=== PATIENT | female | born 1985 | race Caucasian/White ===

== ENCOUNTER 2020-06-27 12:29 | Inpatient (IN) | payer OTHER, SELFPAY ==
[2020-06-27] VITALS (25 sets, daily range): BP systolic 121–259; BP diastolic 41–160; PULSE 67–105; RESP 14–23; TEMP 36.2–37.3; O2SAT 93–100
--- NOTE | ~2020-06-27 | MR_ITS ---
EXAMINATION: MRA brain wo con EXAM DATE: 06/29/2020 11:43 INDICATION: Aneurysm. TECHNIQUE: 3-D lvqz-tj-pcpctq MRA of the intracranial arteries was performed without contrast. There is no prior study for comparison. FINDINGS: There is normal flow related signal seen within the vertebral, basilar and internal carotid arteries. There is no proximal stenosis. There are no aneurysms identified. Both A1 and P1 segments are pat ent. Flow in the cerebral arteries is symmetric. There is right-sided posterior communicating arter y dominant posterior cerebral artery. The vertebral arteries are codominant. IMPRESSION: Normal MRA brain exam. Reviewed, dictated and finalized at location A. UCTION COOK IMPRESSION: Normal MRA brain exam.
--- NOTE | ~2020-06-27 | US_ITS ---
EXAMINATION: US renal BI DATE: 06/29/2020 14:58 INDICATION: Polycystic kidney disease. Hypertension. TECHNIQUE: Multiple ultrasound grayscale images of the kidneys were obtained. COMPARISON: CT dated 05/26/2012 FINDINGS: The right kidney measures 21.6 x 11.7 x 9.9 cm. The left kidney measures 18.7 x 8.8 x 12.0 cm. There are numerous anechoic simple appearing renal cysts occupying the majority of the space throughout bot h kidneys consistent with polycystic kidney disease. There is no hydronephrosis in either kidney. No shadowing stones identified. The bladder is nonvisualized. IMPRESSION: 1. Both kidneys are enlarged and filled with numerous anechoic cysts consistent with polycystic kidn ey disease. 2. No hydronephrosis. Reviewed, dictated and finalized at location A. RONMENTAL SERVICES SPECIALIST IMPRESSION: 1. Both kidneys are enlarged and filled with numerous anechoic cysts consisten t with polycystic kidney disease. 2. No hydronephrosis.
--- NOTE | 2020-06-27 12:31 | ECG_ITS ---
Measurements Intervals [place] Rate: 85 P: 9 [place]: 144 QRS: 32 QRSD: 94 T: -11 QT: 388 QTc: 463 Interpretive Statements SINUS RHYTHM DELAYED PRECORDIAL R/S TRANSITION VOLTAGE CRITERIA FOR LVH NONSPECIFIC ST & T-WAVE ABNORMALITY- INF/LAT LEADS BASELINE ARTIFACT- I, II, III, AVL BORDERLINE ECG Electronically Signed On 06-27-2020 13:29:04 [employer] by Nagi Ruiz D.O.
--- NOTE | 2020-06-27 12:47 | ED.GENADULT ---
HPI - General Adult General Chief complaint: Recheck/Abnormal Lab/Rx Stated complaint: HTN Time Seen by Provider: 06/27/20 12:31 Source: patient History of Present Illness HPI narrative: Patient is a 35 y/o female complaining of severe hypertension. She was seen at Dr. Ocampo's office earlier today. Her BP was reportedly 270s/150s. Running out of medication may have aggravated her HTN. She states that her BP has been high for at least a months. She states that she was seen at [facility] 1 months ago and her BP was 230s/130. She was put on Atenolol, but she ran out 4 days ago. She states that she has history polycystic kidney disease. Related Data Home Medications Medication Instructions Recorded Confirmed atenolol 50 mg PO 06/27/20 Allergies Allergy/AdvReac Type Severity Reaction Status Date / Time No Known Drug Allergies Allergy Unknown Verified 06/27/20 16:06 Review of Systems Constitutional: Constitutional: Denies chills, Denies fever(s), Denies headache(s) and Denies weakness Eyes: Eyes: Denies blurry vision ENT: Denies headache(s) and Denies neck pain Cardiovascular: Cardiovascular: Denies chest pain and Denies dyspnea Respiratory: Respiratory: Denies cough and Denies dyspnea Gastrointestinal: Gastrointestinal: Denies abdominal pain, Denies diarrhea, Denies nausea and Denies vomiting Genitourinary: Genitourinary: Denies hematuria and Denies dysuria Musculoskeletal: Musculoskeletal: Denies back pain and Denies neck pain Neurologic: Denies headache(s) and Denies weakness [facility] Social History Social History Gender identity (if verbalized by the patient): Female Exam Const: General: no acute distress and well developed Orientation/consciousness: oriented to person, oriented to place, oriented to time and patient oriented x3 HENMT: Head: normocephalic Ears: external ears normal General nose exam: Normal external nose present Eyes: General: appearance normal, both eyes and all related structures Conjunctivae: conjunctivae normal Neck: Neck: normal visual inspection and full ROM Chest: Chest palpation & inspection: normal inspection of the chest and no tenderness Resp: Effort & Inspection: normal respiratory effort Auscultation: clear to auscultation bilaterally Cardio: Rate: regular rate Rhythm: regular rhythm GI: GI Palp: No abdominal tenderness and Yes Soft to palpation Skin: General skin exam: normal color and turgor normal Neuro: General: oriented to person, oriented to place, oriented to time and patient oriented x3 Cranial nerves: Yes CN's II-XII intact bilaterally Cognition (Neuro): normal cognition Speech: normal speech Motor exam (neuro): 5/5 motor strength present throughout Sensory Exam: normal sensation Coordination: cwntkl-[id number]-gygq test normal and xzsl-zp-pldo test normal Extrem: General: normal to inspection, full ROM and no pedal edema Psych: Appearance: grossly normal Mental Status: mental status grossly normal Affect: normal affect Course Consultations Consultation #1: Discussed with SIOMARA Louise, who agrees to admit. Date: 06/27/20 Time: 15:50 Vital Signs Vital signs: Vital Signs Temperature 36.2 C L 06/27/20 12:30 Pulse Rate 90 06/27/20 12:30 Respiratory Rate 17 06/27/20 12:30 Blood Pressure 248/154 H 06/27/20 12:30 Pulse Oximetry 99 06/27/20 12:30 Temperature 36.2 C L 06/27/20 12:30 Pulse Rate 71 06/27/20 17:46 Respiratory Rate 19 06/27/20 17:46 Blood Pressure 135/80 06/27/20 17:46 Pulse Oximetry 100 06/27/20 17:46 Medical Decision Making Vital Signs Vital Signs: Vital Signs Temperature 36.2 C L 06/27/20 12:30 Pulse Rate 90 06/27/20 12:30 Respiratory Rate 17 06/27/20 12:30 Blood Pressure 248/154 H 06/27/20 12:30 Pulse Oximetry 99 06/27/20 12:30 Temperature 36.2 C L 06/27/20 12:30 Pulse Rate 71 06/27/20 17:46 Respiratory Rate 19
[2020-06-27 12:54] LABS: Basophils Absolute Auto 0.1 K/mm3 (0.0-0.1); Basophils Percent Auto 0.5 % (0.2-1.2); Eosinophils Absolute Auto 0.2 K/mm3 (0-0.3); Eosinophils Percent Auto 1.5 % (0-4.4); Hematocrit 37.8 % (37.0-47.0); Hemoglobin 12.4 g/dL (12.0-15.0); Immature Granulocyte Absolute 0.06 K/mm3 (0.00-0.031); Immature Granulocyte Percent A 0.4 % (0-0.5); Lymphocytes Percent Auto 20.2 % (18.3-44.2); Mean Corpuscular HGB Conc 32.8 g/dl (32-36); Mean Corpuscular Hemoglobin 29.2 pg (26-34); Mean Corpuscular Volume 88.9 fl (80-100); Mean Platelet Volume 10.6 fl (7.4-10.4); Monocytes Absolute Auto 0.9 K/mm3 (0.1-0.6); Monocytes Percent Auto 5.7 % (2.6-8.5); Neutrophils Absolute Auto 11.4 K/mm3 (1.3-6.7); Neutrophils Percent Auto 71.7 % (45.5-73.1); Platelet Count Result 332 k/mm3 (150-375); Red Blood Count 4.25 M/mm3 (4.2-5.4); Red Cell Distribution Width 13.9 % (11.5-14.5); White Blood Count 15.8 K/mm3 (4.5-10.0)
[2020-06-27] MEDS: amLODIPine BESYLATE 5 MG TABLET 10 MG PO (12:59)
[2020-06-27] MEDS: atenoloL 50 MG TABLET 100 MG PO (13:02)
[2020-06-27 13:06] LABS: Anion Gap 11 mmol/L (8-16); Blood Urea Nitrogen 19 mg/dL (7-17); Carbon Dioxide 21 mmol/L (22-30); Chloride 109 mmol/L (98-107); Estimated CRCL calculation 33 ml/min; Estimated Glomerular Filt Rate 27; Glucose 95 mg/dL (65-105); Potassium 4.4 mmol/L (3.4-5.0); Sodium 141 mmol/L (137-145)
[2020-06-27 13:16] LABS: Troponin I < 0.012 ng/mL (0.000-0.034)
[2020-06-27 13:16] LABS: Add Urine Microscopic? YES; Appearance Urine Clear (Clear); Bacteria Urine 1+ /hpf; Bilirubin Urine Negative (Negative); Blood Urine 1+ (Negative); Color Urine Colorless (Yellow); Glucose Urine UA Negative (Negative); Ketones Urine Negative (Negative); Leukocyte Esterase Ur Negative LEU/UL (Negative); Nitrate Urine Negative (Negative); Protein Urine 2+ mg/dL (Negative); Specific Grav Ur 1.009 (1.001-1.035); Squamous Epithelial Cell Urine Occasional /hpf (Few); Urobilinogen Urine Negative mg/dL (<2.0); WBC Urine 0-3 /hpf
[2020-06-27] MEDS: LABETALOL HCL INJ 100 MG/20 ML VIAL 20 MG IV PUSH ×2 (14:06→19:11)
[2020-06-27] MEDS: hydrALAZINE HCL 50 MG TABLET PO (14:06)
[2020-06-27] MEDS: niCARdipine 20 MG/200 ML 20 MG/200 ML BAG 50 MG IV CONT (16:50)
--- NOTE | 2020-06-27 17:07 | PC.NURSE ---
Per Dr. Landeros, Cardene drip stopped. Pt blood pressure at this time is 138/83
--- NOTE | 2020-06-27 20:30 | ADMGEN ---
This patient, Lyric Law, was admitted to [facility]. Patient/family oriented to hospital policies and general routines including ID bracelet, bed and alarms, visiting hours, pain management, procedures, bathroom and other care routines, personal items, smoking policy, room service/diet, and visiting hours. Information on how to activate the Rapid Response Team has been discussed. Patient/Family are encouraged to report perceived risks to care and to ask questions if they do not understand what they are told or what they should do.
--- NOTE | 2020-06-27 23:00 | PM.IMHP ---
H&P: HPI History of Present Illness Date/Time: 06/27/20 23:00 Chief complaint: Elevated blood pressure. Narrative: Lyric Law is a pleasant 35-year-old female with hypertension and polycystic kidney disease who presented to the emergency department earlier today from her primary care provider's office for elevated blood pressure. She has had high blood pressure for quite some time but has only been on antihypertensives intermittently since that time. She was establishing care with Dr. Ocampo today and her blood pressure was reportedly in the 270s over 150s and she was directed to the emergency department. With further questioning she was seen at [facility] about a month ago after being referred there from a local urgent care, again due to extremely high blood pressure. She was given a prescription for atenolol 50 mg daily which she did take however ran out of that 4 days ago. She does not monitor her blood pressures at home and really has no symptoms of high blood pressure. She specifically denies headache, vertigo, visual changes, chest pain, and shortness of breath. Of note she was recently referred to and child care education coordinator as she was told that she has evidence of chronic renal failure on her labs. Review of Systems Review of Systems: Narrative: Twelve systems were reviewed with pertinent positives and negatives as per HPI. No fever, chills, or sweats. No recent cold or flu symptoms. She is complaining of a mild headache at this time but nothing significant. No auditory visual changes. She denies focal weakness and paresthesias. No change in urine output. She denies hematuria. Except as documented, all other systems were reviewed and are negative. [facility] Past Medical History Medical History (Updated 06/27/20 @ 23:41 by Aspen Cason PA-C) Anemia Chronic kidney disease Depression Hypertension Polycystic kidney disease Tobacco abuse Rntzr-Ctyjtbczr-Fmupv syndrome Status post ablation. Surgical History Surgical History (Updated 06/27/20 @ 23:35 by Aspen Cason PA-C) History of 2 sections History of cardiac radiofrequency ablation (~1998) For Etfjd-Ytqzmaakz-Tfgjr syndrome. History of D&C History of tubal ligation Family History Family History Mother A-fib Colitis Mitral valve prolapse Father Polycystic kidney disease Sibling Right bundle branch block Social History Social History (Updated 06/28/20 @ 00:47 by Aspen Cason PA-C) Social History: Surrogate decision maker: Ita Cummings, mother. Code status: Full code. Smoking packs per day: 1 Smoking cigarettes per day: 20.0 Smoking status: Current every day smoker Tobacco type: cigarettes Alcohol intake: never Substance use: never Substance use type: does not use Additional living arrangements comments: Lives in [place] with her fiance and 2 sons. Additional occupation/education comments: Employed at [employer]. Gender identity (if verbalized by the patient): Female Spiritual care concerns: No Meds Home Medications and Allergies Home Medications Medication Instructions Recorded Confirmed Type atenolol 50 mg PO DAILY 06/27/20 06/27/20 History citalopram [Celexa] 40 mg PO DAILY 06/27/20 06/27/20 History Allergies Allergy/AdvReac Type Severity Reaction Status Date / Time No Known Drug Allergies Allergy Unknown Verified 06/27/20 16:06 Vital Signs Vital Signs - 24 hr 06/27/20 12:30 06/27/20 12:46 06/27/20 13:00 Temperature 97.1 F L Pulse Rate 90 105 H 88 Respiratory Rate 17 15 23 H Blood Pressure 248/154 H 236/160 H 259/145 H Pulse Oximetry 99 99 100 06/27/20 13:02 06/27/20 13:16 06/27/20 13:31 Temperature Pulse Rate 91 86 81 Respiratory Rate 14 23 H Blood Pressure 239/141 H 244/155 H Pulse Oximetry 99 99 06/27/20 14:01 06/27/20 14:16 06/27/20 14:31 Te
[2020-06-28] VITALS (15 sets, daily range): BP systolic 163–200; BP diastolic 115–125; PULSE 63–80; RESP 14–20; TEMP 36.8–37.1; O2SAT 98–100; BMI 20.1
[2020-06-28] MEDS: hydrALAZINE HCL 20 MG/ML VIAL 10 MG IV PUSH ×2 (00:48→08:46)
[2020-06-28] MEDS: ACETAMINOPHEN 500 MG TABLET 1000 MG PO (02:14)
[2020-06-28] MEDS: TRIMETHOBENZAMIDE HCL 200 MG/2 ML VIAL IM (03:58)
[2020-06-28 05:16] LABS: Hemoglobin 11.7 g/dL (12.0-15.0); Mean Corpuscular HGB Conc 32.5 g/dl (32-36); Mean Corpuscular Hemoglobin 28.7 pg (26-34); Mean Corpuscular Volume 88.2 fl (80-100); Mean Platelet Volume 10.4 fl (7.4-10.4); Platelet Count Result 325 k/mm3 (150-375); Red Blood Count 4.08 M/mm3 (4.2-5.4); Red Cell Distribution Width 13.8 % (11.5-14.5); White Blood Count 16.6 K/mm3 (4.5-10.0)
[2020-06-28 05:27] LABS: Anion Gap 8 mmol/L (8-16); Blood Urea Nitrogen 20 mg/dL (7-17); Calcium 9.6 mg/dL (8.4-10.2); Carbon Dioxide 23 mmol/L (22-30); Chloride 107 mmol/L (98-107); Estimated CRCL calculation 29 ml/min; Estimated Glomerular Filt Rate 25; Glucose 121 mg/dL (65-105); Sodium 138 mmol/L (137-145)
[2020-06-28] MEDS: amLODIPine BESYLATE 5 MG TABLET 10 MG PO (08:39)
[2020-06-28] MEDS: atenoloL 50 MG TABLET 100 MG PO (08:39)
[2020-06-28] MEDS: CITALOPRAM HYDROBROMIDE 20 MG TABLET 40 MG PO (08:39)
--- NOTE | 2020-06-28 12:58 | PM.IMPN ---
Progress Note: A&P Assessment and Plan (1) Hypertensive urgency: Code(s): I16.0 - Hypertensive urgency Status: Acute Assessment and Plan: Patient was at new patient appointment with Dr Ocampo, sent here for elevated BPs. Blood pressures as high as 219/140, now at 183/119 last this afternoon. In the ED she was treated with IV labetalol, oral amlodipine and oral hydralazine. She was on a nicardipine drip overnight which was stopped this morning. Received this AM: 100mg atenolol, 10mg amlodipine, IV hydralazine. Add low-dose ALLY inhibitor this afternoon. Pressures improved but not ideal. Appreciate Dr Eddy's input in this setting, as she will greatly benefit from establishing care with a divider operator. (2) Chronic kidney disease: Code(s): N18.9 - Chronic kidney disease, unspecified Status: Chronic Assessment and Plan: Cr up to 2.2. Attempt to get records from Dr Harley's office (her last PCP) for any recent labs that my help establish her more recent kidney function. Difficult to say if this is acute on chronic renal failure or if this is her new baseline function until we get more labs. Cr as high as 1.2 noted on our records from 2011. 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 She notes she was to be referred to a divider operator soon by Dr Ocampo's office but is not yet established with a divider operator. Appreciate Dr Eddy's input. (4) Anemia: Code(s): D64.9 - Anemia, unspecified Status: Chronic Assessment and Plan: H&H is low but stable. I suspect a component of anemia of chronic kidney disease. No evidence of acute bleeding. Monitor CBC. (5) Tobacco abuse: Code(s): Z72.0 - Tobacco use Status: Chronic Assessment and Plan: Smoking cessation advised. Nicotine patch offered. (6) Anxiety: Code(s): F41.9 - Anxiety disorder, unspecified Status: Chronic Assessment and Plan: She describes up to 3 panic attacks per week. Continue her celexa. I recommended she establish with a psychologist or talk therapist as she may benefit from cognitive behavioral therapy. She is anxious today. Try low dose xanax PRN for now and adjust as needed. (7) Leukocytosis: Code(s): D72.829 - Elevated white blood cell count, unspecified Status: Acute Assessment and Plan: No signs or symptoms of acute infection. Afebrile. UA with proteinuria but not suggesting infection. No respiratory symptoms. Could be secondary to stress reaction, also she is a smoker. Monitor CBC. Subjective Date/time seen: 06/28/20 12:45 Interval history: Ms. Law is a pleasant 35yo F with history of polycystic kidney disease admitted for hypertensive urgency. She describes nausea and vomiting earlier this morning, still nauseous now. She notes a headache over bilateral temples and eyes. She reports she sometimes gets leg swelling if she is up and on her feet for awhile, no swelling today. Denies dizziness, chest pain, or shortness of breath. No cough or recent sick contacts. Last BM this morning and looked normal for her. She describes having panic attacks around 2 to 3 times per week and admits she feels nervous and anxious today. Review of Systems Review of Systems: All systems reviewed & are unremarkable except as noted in HPI and below Exam Narrative: Exam Narrative: General: Well-developed female sitting up in bed in no distress. HEENT: Normocephal
[2020-06-28] MEDS: NICOTINE (*PBKC) 7 MG PATCH 1 PATCH TRANSDERM (13:36)
[2020-06-28] MEDS: ONDANSETRON INJ 4 MG/2 ML VIAL IV PUSH (13:40)
[2020-06-28] MEDS: ONDANSETRON INJ 4 MG/2 ML VIAL (13:43)
[2020-06-28] MEDS: ALPRAZolam (*CRX) 0.25 MG TABLET PO (13:45)
[2020-06-28] MEDS: lisinopriL 5 MG TABLET PO (13:46)
[2020-06-28] MEDS: HYDROcodone/acetaminophen (*CRX) 5-325 MG TABLET 1 TAB PO (18:26)
[2020-06-29] VITALS (15 sets, daily range): BP systolic 136–196; BP diastolic 86–123; PULSE 54–68; RESP 14–16; TEMP 36.8; O2SAT 97–98
[2020-06-29] MEDS: HYDROcodone/acetaminophen (*CRX) 5-325 MG TABLET 1 TAB PO ×2 (00:03→06:17)
[2020-06-29 05:34] LABS: Basophils Absolute Auto 0.1 K/mm3 (0.0-0.1); Basophils Percent Auto 0.3 % (0.2-1.2); Eosinophils Absolute Auto 0.1 K/mm3 (0-0.3); Eosinophils Percent Auto 0.4 % (0-4.4); Hematocrit 36.8 % (37.0-47.0); Immature Granulocyte Absolute 0.08 K/mm3 (0.00-0.031); Immature Granulocyte Percent A 0.5 % (0-0.5); Lymphocytes Absolute Auto 2.73 K/mm3 (0.9-3.2); Lymphocytes Percent Auto 17.9 % (18.3-44.2); Mean Corpuscular HGB Conc 32.6 g/dl (32-36); Mean Corpuscular Hemoglobin 29.1 pg (26-34); Mean Corpuscular Volume 89.3 fl (80-100); Mean Platelet Volume 10.7 fl (7.4-10.4); Monocytes Absolute Auto 1.4 K/mm3 (0.1-0.6); Monocytes Percent Auto 8.8 % (2.6-8.5); Neutrophils Percent Auto 72.1 % (45.5-73.1); Platelet Count Result 317 k/mm3 (150-375); Red Blood Count 4.12 M/mm3 (4.2-5.4); Red Cell Distribution Width 13.9 % (11.5-14.5); White Blood Count 15.3 K/mm3 (4.5-10.0)
[2020-06-29 05:52] LABS: Alanine Aminotransferase 11 U/L (4-35); Albumin Level 4.1 g/dL (3.5-5.1); Alkaline Phosphatase 61 U/L (38-126); Anion Gap 8 mmol/L (8-16); Aspartate Amino Transferase 20 U/L (14-36); Bilirubin,Total 0.3 mg/dL (0.2-1.3); Blood Urea Nitrogen 26 mg/dL (7-17); Calcium 9.6 mg/dL (8.4-10.2); Carbon Dioxide 24 mmol/L (22-30); Chloride 103 mmol/L (98-107); Estimated CRCL calculation 27 ml/min; Estimated Glomerular Filt Rate 23; Glucose 103 mg/dL (65-105); Magnesium 1.9 mg/dL (1.6-2.3); Sodium 135 mmol/L (137-145)
--- NOTE | 2020-06-29 08:27 | PM.CNNEP ---
Assessment and Plan Assessment and plan (1) Polycystic kidney disease: Code(s): Q61.3 - Polycystic kidney, unspecified Status: Chronic Assessment and Plan: the patient has polycystic kidneys. She has a positive family history. Will check a Renal ultrasound. She has headaches. See below. She has some flank pain which may or may not be from the kidneys. She seems to have this in the morning when she lies on her left side. (2) Hypertensive urgency: Code(s): I16.0 - Hypertensive urgency Status: Acute Assessment and Plan: Blood pressure was very high on admission. This is still high. Her potassium is borderline high. She is currently getting atenolol and amlodipine as well as lisinopril. Will start hydrochlorothiazide as well. This will help bring her potassium down to protect from hyperkalemia. She is also getting p.r.n. hydralazine. Her blood pressure is still fairly high right now. (3) Tobacco abuse: Code(s): Z72.0 - Tobacco use Status: Chronic Assessment and Plan: She was encouraged to stop smoking. This is accelerating the demise of her kidneys. We discussed that the kidney function is only 23 and dialysis is 10. (4) Chronic headaches: Code(s): R51.9 - Headache, unspecified; G89.29 - Other chronic pain Status: Acute Assessment and Plan: The patient has headaches. Her aunt had cerebral aneurysms. Because of this, her polycystic kidneys, and her headaches, we need to get an MR angio to be sure she does not have aneurysms as well. Long discussion with the patient. History of Present Illness Reason for Consult Consult date: 06/29/20 Chief Complaint Chief complaint: Elevated blood pressure. History of Present Illness Narrative: Lyric is a very pleasant 35-year-old lady who has polycystic kidney disease. She found out a few years ago. Her aunt has a transplant and her grandmother had it as well. the patient has had headaches since she was 11 years old. They come when her blood pressure is high but also on their own. The patient has flank pain on the left ever once in a while usually in the morning if she had laid on that side. The patient denies kidney stones bloody urine or infections. She does have hypertension. She has had trouble taking her medications. She is to be on lisinopril and then she stopped taking this on her own. A month ago she went to urgent care and they transferred her to [place] where they gave her atenolol. She does not take her blood pressure at home so she does not know how well this works but 4 days ago she ran out and went to see Dr. Ocampo and her blood pressure was 270/140 she says. They sent her to [place] emergency room and she was admitted. She did not have a headache yesterday in his office but she does have a headache now. She smokes a pack a day. She drinks alcohol. Review of Systems Constitutional: Constitutional: Reports no additional constitutional complaints Eyes: Eyes: Reports no additional eye complaints ENT: Reports system reviewed and no additional complaints, except as documented Cardiovascular: Cardiovascular: Reports no additional cardiovascular complaints Respiratory: Respiratory: Reports no additional respiratory complaints Gastrointestinal: Gastrointestinal: Reports no additional gastrointestinal complaints Genitourinary: Genitourinary: Reports no additional female genitourinary complaints Musculoskeletal: Musculoskeletal: Reports no additional musculoskeletal complaints Integumentary/Breasts: Skin/Breast: Reports system reviewed and no additional complaints, except as docu Neurologic: Reports system reviewed and no additional complaints, except as documented Psychiatric: Psychiatric: Reports no additional psychiatric complaints Endocrine: Endocrine: Reports no additional endocrine complaints PMFSH Past Medical History Medical His
[2020-06-29] MEDS: CITALOPRAM HYDROBROMIDE 20 MG TABLET 40 MG PO (08:31)
[2020-06-29] MEDS: atenoloL 50 MG TABLET 100 MG PO (08:31)
[2020-06-29] MEDS: NICOTINE (*PBKC) 7 MG PATCH 1 PATCH TRANSDERM (08:31)
[2020-06-29] MEDS: amLODIPine BESYLATE 5 MG TABLET 10 MG PO (08:57)
[2020-06-29] MEDS: lisinopriL 2.5 MG TABLET PO (08:57)
[2020-06-29] MEDS: hydrALAZINE HCL 20 MG/ML VIAL 10 MG IV PUSH ×2 (08:59→20:22)
[2020-06-29] MEDS: hydroCHLOROthiazide 25 MG TABLET PO (09:53)
--- NOTE | 2020-06-29 16:17 | PM.IMPN ---
Progress Note: A&P Assessment and Plan (1) Hypertensive urgency: Code(s): I16.0 - Hypertensive urgency Status: Acute Assessment and Plan: Sent here from PCPs office for markedly elevated BPs. Blood pressures as high as 219/140, now at 174/119 last this afternoon. Now on atenolol, amlodipine, low-dose lisinopril. Dr Eddy added HCTZ. I decreased the lisinopril dose due to rising Cr. Pressures are improved but still not at goal. Appreciate Dr Eddy's input. (2) Chronic kidney disease: Code(s): N18.9 - Chronic kidney disease, unspecified Status: Chronic Assessment and Plan: Cr up to 2.4. Attempt to get records from Dr Harley's office (her last PCP) for any recent labs that my help establish her more recent kidney function. Cr as high as 1.2 noted on our records from 2011. 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 She notes she was to be referred to a urban forester soon by Dr Ocampo's office but is not yet established with a urban forester. Appreciate Dr Eddy's input. Renal sonogram shows both kidneys enlarged and filled with numerous anechoic cysts consistent with PKD, no hydronephrosis. (4) Anemia: Code(s): D64.9 - Anemia, unspecified Status: Chronic Assessment and Plan: H&H is low but stable. I suspect a component of anemia of chronic kidney disease. No evidence of acute bleeding. Monitor CBC. (5) Tobacco abuse: Code(s): Z72.0 - Tobacco use Status: Chronic Assessment and Plan: Smoking cessation advised. Nicotine patch offered. (6) Anxiety: Code(s): F41.9 - Anxiety disorder, unspecified Status: Chronic Assessment and Plan: She describes up to 3 panic attacks per week. Continue her celexa. I recommended she establish with a psychologist or talk therapist as she may benefit from cognitive behavioral therapy. She is anxious today. Try low dose xanax PRN for now and adjust as needed. (7) Leukocytosis: Code(s): D72.829 - Elevated white blood cell count, unspecified Status: Acute Assessment and Plan: No signs or symptoms of acute infection. Afebrile. UA with proteinuria but not suggestive of infection. No respiratory symptoms. Could be secondary to stress reaction, also she is a smoker. Monitor CBC. (8) Chronic headaches: Code(s): R51.9 - Headache, unspecified; G89.29 - Other chronic pain Status: Acute Assessment and Plan: Patient still with significant headaches today. Dr. Eddy ordered brain MRA which is normal without any evidence of aneurysm. She notes that Excedrin normally helps her headaches, which I am hesitant to give her given her rising Cr. Continue Tylenol, [place], ice pack. Subjective Date/time seen: 06/29/20 1530 Interval history: Ms. Law is a pleasant 35yo F with history of polycystic kidney disease admitted for hypertensive urgency. She continues with significant headaches today. She also still has nausea with vomiting today. No chest pain or shortness of breath. Still quite anxious today but pleasant and cooperative. Review of Systems Review of Systems: All systems reviewed & are unremarkable except as noted in HPI and below Exam Narrative: Exam Narrative: General: Well-developed female sitting up in bed in no distress. HEENT: Normocephalic, EOMI. Oral mucosa moist. Respiratory: Clear to auscultation bilate
[2020-06-29] MEDS: HYDROcodone/acetaminophen (*CRX) 7.5-325 MG TABLET 1 TAB PO ×2 (17:14→23:56)
[2020-06-29] MEDS: ALPRAZolam (*CRX) 0.25 MG TABLET PO (21:05)
[2020-06-30] VITALS (13 sets, daily range): BP systolic 132–179; BP diastolic 91–112; PULSE 52–66; RESP 12–14; TEMP 36.7–37.1; O2SAT 97–99
[2020-06-30 05:47] LABS: Basophils Absolute Auto 0.1 K/mm3 (0.0-0.1); Basophils Percent Auto 0.4 % (0.2-1.2); Eosinophils Percent Auto 0.3 % (0-4.4); Hematocrit 39.7 % (37.0-47.0); Immature Granulocyte Absolute 0.07 K/mm3 (0.00-0.031); Immature Granulocyte Percent A 0.5 % (0-0.5); Lymphocytes Absolute Auto 2.64 K/mm3 (0.9-3.2); Lymphocytes Percent Auto 19.5 % (18.3-44.2); Mean Corpuscular HGB Conc 32.7 g/dl (32-36); Mean Corpuscular Hemoglobin 29.3 pg (26-34); Mean Corpuscular Volume 89.6 fl (80-100); Mean Platelet Volume 10.8 fl (7.4-10.4); Monocytes Absolute Auto 1.3 K/mm3 (0.1-0.6); Monocytes Percent Auto 9.7 % (2.6-8.5); Neutrophils Absolute Auto 9.4 K/mm3 (1.3-6.7); Neutrophils Percent Auto 69.6 % (45.5-73.1); Platelet Count Result 355 k/mm3 (150-375); Red Blood Count 4.43 M/mm3 (4.2-5.4); Red Cell Distribution Width 13.6 % (11.5-14.5); White Blood Count 13.5 K/mm3 (4.5-10.0)
[2020-06-30 06:00] LABS: Anion Gap 11 mmol/L (8-16); Blood Urea Nitrogen 29 mg/dL (7-17); Calcium 9.7 mg/dL (8.4-10.2); Carbon Dioxide 23 mmol/L (22-30); Chloride 101 mmol/L (98-107); Estimated CRCL calculation 28 ml/min; Estimated Glomerular Filt Rate 24; Glucose 106 mg/dL (65-105); Magnesium 1.9 mg/dL (1.6-2.3); Potassium 4.5 mmol/L (3.4-5.0); Sodium 135 mmol/L (137-145)
--- NOTE | 2020-06-30 08:35 | PC.NURSE ---
DR. OTOOLE HERE TO SEE PT. CONDITION UPDATE GIVEN. NEW MED ORDERS RECEIVED.
--- NOTE | 2020-06-30 10:05 | PC.NURSE ---
MEGAN STRINGER HERE TO SEE PT. CONDITION UPDATE GIVEN. WILL GIVE NEW MEDS AND THEN REASSESS BP.
[2020-06-30] MEDS: hydroCHLOROthiazide 25 MG TABLET PO (10:53)
[2020-06-30] MEDS: CITALOPRAM HYDROBROMIDE 20 MG TABLET 40 MG PO (10:53)
[2020-06-30] MEDS: lisinopriL 10 MG TABLET PO (10:53)
[2020-06-30] MEDS: NIFEdipine 30 MG TAB.ER.24 60 MG PO (10:54)
[2020-06-30] MEDS: METOPROLOL TARTRATE 50 MG TAB PO (10:55)
[2020-06-30] MEDS: HYDROcodone/acetaminophen (*CRX) 7.5-325 MG TABLET 1 TAB PO (10:56)
--- NOTE | 2020-06-30 13:00 | PC.NURSE ---
BP 2 HOURS AFTER MEDS GIVEN NOW AT 179/110 R. ARM AND 175/113 L. ARM. HEADACHE BETTER AFTER NORCO GIVEN AT 1056. NOTIFIED MEGAN STRINGER OF BP READINGS. WILL GIVE HYDRALAZINE 10MG IVP FOR BP.
--- NOTE | 2020-06-30 13:20 | PM.PNNEP ---
Progress Note: A&P Assessment and Plan (1) Polycystic kidney disease: Code(s): Q61.3 - Polycystic kidney, unspecified Status: Chronic Assessment and Plan: the patient has polycystic kidneys. She has a positive family history. Ultrasound showed innumerable cysts and large size. No masses. She has headaches. MRA is negative. She has some flank pain which may or may not be from the kidneys. She seems to have this in the morning when she lies on her left side. (2) Hypertensive urgency: Code(s): I16.0 - Hypertensive urgency Status: Acute Assessment and Plan: Blood pressure was very high on admission. This is still high. Changed from amlodipine to nifedipine. Lisinopril increased. Will need to watch her potassium closely. She is on hydrochlorothiazide to help with the potassium also. (3) Tobacco abuse: Code(s): Z72.0 - Tobacco use Status: Chronic Assessment and Plan: She was encouraged to stop smoking. This is accelerating the demise of her kidneys. (4) Chronic headaches: Code(s): R51.9 - Headache, unspecified; G89.29 - Other chronic pain Status: Acute Assessment and Plan: MRA negative Subjective Date/time seen: 06/30/20 13:20 Interval history: patient feels better today. She is eager for discharge. Blood pressure still high overnight. Review of Systems Cardiovascular: Cardiovascular: Reports no additional cardiovascular complaints Respiratory: Respiratory: Reports no additional respiratory complaints Gastrointestinal: Gastrointestinal: Reports no additional gastrointestinal complaints Genitourinary: Genitourinary: Reports no additional female genitourinary complaints Exam Narrative: Exam Narrative: WDWN in NAD skin no rash head ncat lungs clear cor reg no rub abd BS+ nontender and soft ext no edema. Objective Data Vital Signs Vital Signs: Vital Signs - 24 hr 06/29/20 14:00 06/29/20 15:48 06/29/20 16:00 Temperature Pulse Rate 56 L 55 L 65 Respiratory Rate 14 Blood Pressure 174/113 H Pulse Oximetry 98 06/29/20 20:15 06/29/20 21:00 06/29/20 22:00 Temperature 36.8 C Pulse Rate 59 L 60 56 L Respiratory Rate 16 Blood Pressure 186/121 H 152/93 H Pulse Oximetry 98 06/29/20 23:57 06/30/20 00:00 06/30/20 02:00 Temperature Pulse Rate 55 L 55 L 52 L Respiratory Rate 16 Blood Pressure 185/108 H Pulse Oximetry 98 06/30/20 04:05 06/30/20 06:00 06/30/20 10:55 Temperature Pulse Rate 53 L 56 L 60 Respiratory Rate 14 Blood Pressure 177/112 H Pulse Oximetry 97 Intake/Output Intake/Output: Intake & Output 06/27/20 06/28/20 06/29/20 06/30/20 23:59 23:59 23:59 23:59 Intake Total 20 750 840 500 Balance 20 750 840 500 Meds/Results Medications: Active Medications Generic Name Dose Route Start Last Admin Trade Name Freq PRN Reason Stop Dose Admin Acetaminophen 1,000 mg 06/28/20 17:53 Acetaminophen 500 Mg Tablet PO Q6H PRN Pain Rated 5 or Less Hydrocodone Bitart/Acetaminophen 1 tab 06/29/20 16:16 06/30/20 10:56 Hydrocodone/Acetaminophen (*Crx) 7.5-325 Mg Tablet PO 1 tab Q6H PRN Administration Pain Rated 6 or Greater Alprazolam 0.25 mg 06/28/20 12:52 06/29/20 21:05 Alprazolam (*Crx) 0.25 Mg Tablet PO 0.25 mg BID PRN Administration Anxiety Citalopram Hydrobromide 40 mg 06/28/20 09:00 06/30/20 10:53 Citalopram Hydrobromide 20 Mg Tablet PO 40 mg DAILY CECY Administration Hydralazine HCl 10 mg 06/27/20 23:40 06/29/20 20:22 Hydralazine Hcl 20 Mg/Ml Vial IV PUSH 10 mg Q6H PRN Administration SBP > 185 or DBP > 105 Hydrochlorothiazide 25 mg 06/29/20 09:30 06/30/20 10:53 Hydrochlorothiazide 25 Mg Tablet PO 25 mg QAM CECY Administration Lisinopril 10 mg 06/30/20 09:00 06/30/20 10:53 Lisinopril 10 Mg Tablet PO 10 mg QAM CECY Administration Meto
[2020-06-30] MEDS: hydrALAZINE HCL 20 MG/ML VIAL 10 MG IV PUSH (14:05)
--- NOTE | 2020-06-30 15:30 | PC.NURSE ---
HYDRALAZINE 10MG IVP GIVEN AT 1405. RECHECK OF BP AT 1525 IS 143/94. NOTIFIED MEGAN STRINGER OF RESULT.
--- NOTE | 2020-06-30 15:39 | PM.DS ---
DS: Admitting Diagnosis Admitting Diagnosis Admitting Diagnosis: Elevated blood pressure. DS: Discharge Diagnosis Discharge Diagnosis (1) Hypertensive urgency: Code(s): I16.0 - Hypertensive urgency Status: Acute Assessment and Plan: Date of Admission 06/27/20 Date of Discharge 06/30/20 Ms. Law is a 35yo F with history of polycystic kidney disease with subsequent CKD as well as hypertension, anxiety, tobacco use who presented to the ED at the instruction of her primary care provider due to markedly elevated blood pressures. She was previously a patient of Dr Harley (PCP), was at an appointment 06/27 to establish care with Dr Ocampo when her blood pressure was reportedly found to be 270/159 and she was directed to the ED. She describes she has known about her PKD diagnosis for the last 11 years but describes she does not routinely follow with a form builder helper. She does admit to significant anxiety with panic attacks and seems that she has been lost in follow up and at times becomes noncompliant with medications as a result of feeling overwhelmed with her diagnosis. She describes she was seen at [facility] for high blood pressures around one month ago and was discharged with atenolol, which she ran out of 4 days ago. She reports headaches over JUNAID eyes which did improve some once her blood pressures came down. Creatinine was up to 2.4 during this stay. She was evaluated by nephrology, Dr Eddy. She was started on multiple medications for blood pressure which were titrated based on her response, and ultimately discharges with the following antihypertensives: HCTZ 25mg QAM Lisinopril 10mg QAM Metoprolol tartrate 50mg Q12hr Nifedipine 60mg QAM Blood pressures improved but did remain elevated. Last BP prior to discharge was improved at 132/91. She was instructed to buy a blood pressure cuff when she picks up her medications at the pharmacy on the way home, call Dr Eddy's office tomorrow with BP readings and to schedule a short-interval follow up appointment. Smoking cessation strongly encouraged. She was hemodynamically stable for discharge 06/30/20. Sent here from PCPs office for markedly elevated BPs. Blood pressures as high as 219/140 on arrival, now at 1132/91 last this afternoon. (2) Chronic kidney disease: Code(s): N18.9 - Chronic kidney disease, unspecified Status: Chronic Assessment and Plan: Cr up to 2.4. Cr as high as 1.2 noted on our records from 2011. 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 She notes she was to be referred to a form builder helper soon by Dr Ocampo's office but is not yet established with a form builder helper. She can follow with Dr Eddy now. Renal sonogram shows both kidneys enlarged and filled with numerous anechoic cysts consistent with PKD, no hydronephrosis. (4) Anemia: Code(s): D64.9 - Anemia, unspecified Status: Chronic Assessment and Plan: H&H is low but stable. I suspect a component of anemia of chronic kidney disease. No evidence of acute bleeding. (5) Tobacco abuse: Code(s): Z72.0 - Tobacco use Status: Chronic Assessment and Plan: Smoking cessation advised. Nicotine patch offered. (6) Anxiety: Code(s): F41.9 - Anxiety disorder, unspecified Status: Chronic Assessment and Plan: She describes up to 3 panic attacks per week. Continue her celexa. I recommended she establish with a psychologist or talk therapist as she may benefit from cognitive be
--- NOTE | 2020-06-30 17:00 | PC.NURSE ---
PREPARRING FOR DISCHARGE HOME. CURRENT BP 132/91. IV SITE DISCONTINUED. DRESSING FOR DISCHARGE.
--- NOTE | 2020-06-30 18:15 | PC.NURSE ---
REVIEWED DISCHARGE INSTRUCTIONS W/ PT AND COPY GIVEN. ALL QUESTIONS ANSWERED. VOICED UNDERSTANDING. DISCHARGED HOME, OUT VIA WC TO [facility] WA[facility] WITH ALL PERSONAL BELONGINGS AND DISCHARGE PACKET. NO DISTRESS NOTED. VOICES NO C/O.
== END 2020-06-30 18:15 | disposition home or self-care (01) | DRG 199 ==
LOC: ANHED 18:42 → ANHCPC 18:47
PROVIDERS: Physician Assistant; Admitting Provider Family Medicine; Emergency Provider Emergency Medicine; PCP Family Medicine; Visit Provider Internal Medicine
DX: I16.0 Hypertensive urgency (principal); Q61.3 Polycystic kidney, unspecified; I12.9 Hypertensive chronic kidney disease with stage 1 through stage 4 chronic kidney disease, or unspecified chronic kidney disease; N18.9 Chronic kidney disease, unspecified; D63.1 Anemia in chronic kidney disease; F17.210 Nicotine dependence, cigarettes, uncomplicated; F41.0 Panic disorder [episodic paroxysmal anxiety]; D72.829 Elevated white blood cell count, unspecified; R51.9 Headache, unspecified; G89.29 Other chronic pain; Z79.899 Other long term (current) drug therapy; Z82.49 Family history of ischemic heart disease and other diseases of the circulatory system; Z91.14 Patient's other noncompliance with medication regimen
CPT/HCPCS: 36415; 70544; 76775; 80048; 80053; 81001; 81025; 83735; 84484; 85025; 85027; 93005; 96365; 96374; 96375; 96376; 99285; A9270; G0378; G0379; J0360; J2405; J3250

== ENCOUNTER 2020-07-11 13:19 | Outpatient (CLI) | payer OTHER, SELFPAY ==
[2020-07-11 13:53] LABS: Anion Gap 11 mmol/L (8-16); Blood Urea Nitrogen 46 mg/dL (7-17); Calcium 8.7 mg/dL (8.4-10.2); Carbon Dioxide 20 mmol/L (22-30); Chloride 107 mmol/L (98-107); Estimated Glomerular Filt Rate 23; Glucose 120 mg/dL (65-105); Potassium 4.4 mmol/L (3.4-5.0); Sodium 138 mmol/L (137-145)
== END 2020-07-11 13:20 | disposition home or self-care (01) ==
PROVIDERS: PCP Family Medicine; Visit Provider Physician Assistant
DX: N18.9 Chronic kidney disease, unspecified (principal)
CPT/HCPCS: 36415; 80048

== ENCOUNTER 2022-08-09 04:17 | Emergency (ER) | payer OTHER, SELFPAY ==
[2022-08-09 04:21] VITALS: BP 226/135; PULSE 71; RESP 18; TEMP 36.3; O2SAT 100
--- NOTE | 2022-08-09 04:45 | PC.NURSE ---
Pt reports sudden onset abdominal cramping and swelling to her hands and lips while she was giving her dog a bath around 1930 last night. Abdominal pain and swelling to hands resolved, but her lips remain swollen, although the swelling has gone down. She denies new soaps, toiletries, detergents, or medications. She denies difficulty breathing or swallowing. No rashes on inspection. States her mom called her at 0330 to check on her and she started having more mild abdominal cramping. She rates her discomfort a 2/10 at this time. Denies fevers or n/v. She did not take any benadryl at home d/t hx of polycystic kidney disease.
[2022-08-09] MEDS: FAMOTIDINE 20 MG TABLET PO (05:13)
[2022-08-09] MEDS: predniSONE 20 MG TABLET 40 MG PO (05:13)
[2022-08-09] MEDS: diphenhydrAMINE HCl CAP 25 MG CAPSULE 50 MG PO (05:13)
--- NOTE | 2022-08-09 05:19 | ED.ALLEREA ---
HPI - Allergic Reaction General Chief complaint: Dental/Oral Stated complaint: oral swelling Time Seen by Provider: 08/09/22 04:45 History of Present Illness HPI narrative: 37-year-old female with history of high cholesterol on multiple blood pressure medicine presents here with swelling to her lips, she states that last night she was walking her dog when she noticed she had some swelling to her lips, scratchy throat, crampy pain in her abdomen with nausea and vomiting, and lightheadedness and feeling flushed. Also some swelling to her hands and feet. she is feeling slightly better this morning, with only some swollen lips left. Denies any headache, dizziness, chest pain, difficulty breathing. Related Data Home Medications Medication Instructions Recorded Confirmed citalopram 40 mg tablet (Celexa) 40 mg PO DAILY 06/27/20 06/27/20 Allergies Allergy/AdvReac Type Severity Reaction Status Date / Time No Known Drug Allergies Allergy Unknown Verified 06/27/20 16:06 Review of Systems Review of Systems: CONST: No fever. HEENT: Swollen lips/eyes C/V: No chest pain RESP: No cough GI: Some nausea/cramps : No dysuria. M/S: No joint pain. SKIN: No rash. NEURO: [No headache or focal numbness or weakness] PSYCH: Anxious PMFSH Past Medical History Medical History Anemia Chronic headaches Chronic kidney disease Depression Hypertension Polycystic kidney disease Tobacco abuse Gpnao-Myugnomxd-Ulcfl syndrome Status post ablation. Surgical History Surgical History History of 2 sections History of cardiac radiofrequency ablation (~1998) For Eagwk-Trolsbkyn-Slbpm syndrome. History of D&C History of tubal ligation Family History Family History Mother A-fib Colitis Mitral valve prolapse Father Polycystic kidney disease Sibling Right bundle branch block Social History Social History Social History: Surrogate decision maker: Ita Cummings, mother. Code status: Full code. Smoking packs per day: 1 Smoking cigarettes per day: 20.0 Smoking status: Current every day smoker Tobacco type: cigarettes Alcohol intake: never Substance use: never Substance use type: does not use Additional living arrangements comments: Lives in [place] with her fiance and 2 sons. Additional occupation/education comments: Employed at [employer]. Gender identity (if verbalized by the patient): Female Spiritual care concerns: No Exam Narrative: EXAMINATION OF ORGAN SYSTEMS/BODY AREAS: Constitutional: Vital signs per nursing GENERAL:[No acute distress, non-toxic appearing.] HEAD: Normal with no signs of head trauma. EYES: Some periorbital edema ENT: Airway intact, no stridor, lip swelling LUNGS: Nonlabored breathing. HEART: [Regular rate and rhythm] ABD: [Soft], [nontender to palpation] EXT: Normal range of motion SKIN: [No rashes or lesions.] NEURO: [Alert and oriented x 3. No gross focal sensory or strength deficits.] PSYCH: Normal affect Course Vital Signs Vital signs: Vital Signs Temperature 97.3 F L 08/09/22 04:21 Pulse Rate 71 08/09/22 04:21 Respiratory Rate 18 08/09/22 04:21 Blood Pressure 226/135 H 08/09/22 04:21 Pulse Oximetry 100 08/09/22 04:21 Oxygen Delivery Room Air 08/09/22 04:21 Temperature 97.3 F L 08/09/22 04:21 Pulse Rate 63 08/09/22 05:44 Respiratory Rate 18 08/09/22 05:44 Blood Pressure 219/145 H 08/09/22 05:44 Pulse Oximetry 100 08/09/22 05:44 Oxygen Delivery Room Air 08/09/22 04:21 MDM - Allergic Reaction MDM Narrative Medical decision making narrative: MEDICAL DECISION MAKING AND COURSE IN THE ED WITH INTERPRETATION/REVIEW OF DIAGNOSTIC STUDIES: Electronic medical record was reviewed. Patient present
[2022-08-09 05:44] VITALS: BP 219/145; PULSE 63; RESP 18; O2SAT 100
[2022-08-09 06:19] VITALS: BP 203/135; PULSE 80; RESP 18; O2SAT 99
== END 2022-08-09 06:20 | disposition home or self-care (01) ==
PROVIDERS: Emergency Provider Emergency Medicine; PCP Emergency Medicine
DX: T78.40XA Allergy, unspecified, initial encounter (principal); N18.9 Chronic kidney disease, unspecified; I12.9 Hypertensive chronic kidney disease with stage 1 through stage 4 chronic kidney disease, or unspecified chronic kidney disease; I45.6 Pre-excitation syndrome; Q61.3 Polycystic kidney, unspecified; F32.A Depression, unspecified; Z86.2 Personal history of diseases of the blood and blood-forming organs and certain disorders involving the immune mechanism; F17.210 Nicotine dependence, cigarettes, uncomplicated
CPT/HCPCS: 99283; A9270; J7512

== ENCOUNTER 2022-09-17 12:57 | Outpatient (CLI) | payer OTHER, SELFPAY ==
[2022-09-17 14:30] LABS: Albumin Level 4.8 g/dL (3.5-5.1); Anion Gap 12 mmol/L (8-16); Blood Urea Nitrogen 88 mg/dL (7-17); Calcium 9.1 mg/dL (8.4-10.2); Carbon Dioxide 19 mmol/L (22-30); Chloride 99 mmol/L (98-107); Estimated Glomerular Filt Rate 8; Glucose 108 mg/dL (65-110); Sodium 130 mmol/L (137-145)
[2022-09-24 06:03] LABS: Renin 6.49 ng/mL/h (0.25-5.82)
== END 2022-09-17 12:58 | disposition home or self-care (01) ==
PROVIDERS: PCP Emergency Medicine; Visit Provider Internal Medicine Nephrology
DX: I16.0 Hypertensive urgency (principal); N18.4 Chronic kidney disease, stage 4 (severe)
CPT/HCPCS: 36415; 80069; 82088; 84244; 86900; 86901

== ENCOUNTER 2022-10-09 11:54 | Outpatient (CLI) | payer OTHER, SELFPAY ==
[2022-10-09 12:55] LABS: Albumin Level 4.7 g/dL (3.5-5.1); Anion Gap 7 mmol/L (8-16); Blood Urea Nitrogen 49 mg/dL (7-17); Calcium 9.1 mg/dL (8.4-10.2); Carbon Dioxide 24 mmol/L (22-30); Chloride 103 mmol/L (98-107); Estimated Glomerular Filt Rate 14; Glucose 100 mg/dL (65-110); Phosphorus 4.8 mg/dL (2.5-4.5); Potassium 4.8 mmol/L (3.4-5.0); Sodium 134 mmol/L (137-145)
== END 2022-10-09 11:55 | disposition home or self-care (01) ==
LOC: ANHLAB 11:55
PROVIDERS: PCP Emergency Medicine; Visit Provider Internal Medicine Nephrology
DX: N18.4 Chronic kidney disease, stage 4 (severe) (principal)
CPT/HCPCS: 36415; 80069

== ENCOUNTER 2022-12-11 12:41 | Outpatient (CLI) | payer OTHER, SELFPAY ==
[2022-12-11 12:13] LABS: Hemoglobin 9.8 g/dL (12.0-15.0); Mean Corpuscular HGB Conc 31.6 g/dl (32-36); Mean Corpuscular Hemoglobin 28.7 pg (26-34); Mean Corpuscular Volume 90.9 fl (80-100); Mean Platelet Volume 10.2 fl (7.4-10.4); Platelet Count Result 272 k/mm3 (150-375); Red Blood Count 3.41 M/mm3 (4.2-5.4); Red Cell Distribution Width 12.7 % (11.5-14.5); White Blood Count 13.1 K/mm3 (4.5-10.0)
[2022-12-11 12:27] LABS: Albumin Level 4.4 g/dL (3.5-5.1); Anion Gap 10 mmol/L (8-16); Blood Urea Nitrogen 55 mg/dL (7-17); Calcium 8.7 mg/dL (8.4-10.2); Carbon Dioxide 23 mmol/L (22-30); Chloride 106 mmol/L (98-107); Estimated Glomerular Filt Rate 13; Glucose 94 mg/dL (65-110); Phosphorus 5.5 mg/dL (2.5-4.5); Potassium 4.6 mmol/L (3.4-5.0); Sodium 139 mmol/L (137-145)
[2022-12-11 12:40] LABS: Parathyroid Intact 256.7 pg/mL (7.5-53.5)
[2022-12-11 13:11] LABS: Creatinine Urine 40.4 mg/dL; Total Protein Urine Random 39 mg/dL; Ur Ttl Prot Creatinine Ratio 0.97 mg/mg (0-0.20)
== END 2022-12-11 12:42 | disposition home or self-care (01) ==
LOC: ANHLAB 12:41
PROVIDERS: PCP Family Medicine; Visit Provider Internal Medicine Nephrology
DX: R80.1 Persistent proteinuria, unspecified (principal); N18.4 Chronic kidney disease, stage 4 (severe)
CPT/HCPCS: 36415; 80069; 82570; 83970; 84156; 85027

== ENCOUNTER 2023-03-13 11:39 | Outpatient (CLI) | payer OTHER, SELFPAY ==
[2023-03-13 12:29] LABS: Hematocrit 35.3 % (37.0-47.0); Hemoglobin 11.1 g/dL (12.0-15.0); Mean Corpuscular HGB Conc 31.4 g/dl (32-36); Mean Corpuscular Hemoglobin 28.5 pg (26-34); Mean Corpuscular Volume 90.5 fl (80-100); Mean Platelet Volume 10.3 fl (7.4-10.4); Platelet Count Result 340 k/mm3 (150-375); Red Cell Distribution Width 12.6 % (11.5-14.5)
[2023-03-13 12:42] LABS: Albumin Level 4.6 g/dL (3.5-5.1); Anion Gap 10 mmol/L (8-16); Blood Urea Nitrogen 49 mg/dL (7-17); Calcium 9.4 mg/dL (8.4-10.2); Carbon Dioxide 20 mmol/L (22-30); Chloride 105 mmol/L (98-107); Estimated Glomerular Filt Rate 11; Glucose 100 mg/dL (65-110); Phosphorus 5.9 mg/dL (2.5-4.5); Potassium 4.4 mmol/L (3.4-5.0); Sodium 135 mmol/L (137-145)
[2023-03-13 12:43] LABS: Total Protein Urine Random 52 mg/dL; Ur Ttl Prot Creatinine Ratio 1.02 mg/mg (0-0.20)
[2023-03-13 12:52] LABS: Parathyroid Intact 203.1 pg/mL (7.5-53.5)
[2023-03-13 14:42] LABS: Hepatitis B Surface Antigen Negative (Negative)
[2023-03-13 15:00] LABS: Hepatitis B Surface Anti Res Negative; Hepatitis C Virus Antibody Negative (Negative)
[2023-03-16 19:46] LABS: Hepatitis B Core Ab Total Nonreactive (Nonreactive)
[2023-03-18 12:27] LABS: Quantiferon TB Plus, 1T Negative
[2023-03-18 12:28] LABS: NIL 0.02
== END 2023-03-13 11:40 | disposition home or self-care (01) ==
LOC: ANHLAB 11:40
PROVIDERS: PCP Family Medicine; Visit Provider Internal Medicine Nephrology
DX: N18.4 Chronic kidney disease, stage 4 (severe) (principal); R80.1 Persistent proteinuria, unspecified; R53.83 Other fatigue
CPT/HCPCS: 36415; 80069; 82570; 83970; 84156; 85027; 86480; 86704; 86706; 86803; 87340

== ENCOUNTER 2023-05-10 11:55 | Outpatient (CLI) | payer OTHER, SELFPAY ==
[2023-05-10 13:07] LABS: Hematocrit 34.1 % (37.0-47.0); Hemoglobin 10.9 g/dL (12.0-15.0); Mean Corpuscular Hemoglobin 28.8 pg (26-34); Mean Corpuscular Volume 90.2 fl (80-100); Mean Platelet Volume 10.2 fl (7.4-10.4); Platelet Count Result 314 k/mm3 (150-375); Red Blood Count 3.78 M/mm3 (4.2-5.4); Red Cell Distribution Width 12.3 % (11.5-14.5); White Blood Count 11.5 K/mm3 (4.5-10.0)
[2023-05-10 13:13] LABS: Creatinine Urine 46.2 mg/dL; Total Protein Urine Random 44 mg/dL; Ur Ttl Prot Creatinine Ratio 0.95 mg/mg (0-0.20)
[2023-05-10 13:18] LABS: Albumin Level 4.5 g/dL (3.5-5.1); Anion Gap 11 mmol/L (8-16); Blood Urea Nitrogen 51 mg/dL (7-17); Calcium 8.7 mg/dL (8.4-10.2); Carbon Dioxide 23 mmol/L (22-30); Chloride 105 mmol/L (98-107); Estimated Glomerular Filt Rate 10; Glucose 89 mg/dL (65-110); Phosphorus 5.2 mg/dL (2.5-4.5); Potassium 4.2 mmol/L (3.4-5.0); Sodium 139 mmol/L (137-145)
[2023-05-10 13:26] LABS: Parathyroid Intact 247.3 pg/mL (7.5-53.5)
== END 2023-05-10 11:56 | disposition home or self-care (01) ==
LOC: ANHLAB 11:56
PROVIDERS: PCP Family Medicine; Visit Provider Internal Medicine Nephrology
DX: R53.83 Other fatigue (principal); R80.1 Persistent proteinuria, unspecified
CPT/HCPCS: 36415; 80069; 82570; 83970; 84156; 85027

== ENCOUNTER 2023-07-01 13:30 | Outpatient (CLI) | payer OTHER, SELFPAY ==
[2023-07-01 13:48] LABS: Hematocrit 35.3 % (37.0-47.0); Hemoglobin 11.3 g/dL (12.0-15.0); Mean Corpuscular Hemoglobin 28.3 pg (26-34); Mean Corpuscular Volume 88.5 fl (80-100); Mean Platelet Volume 9.5 fl (7.4-10.4); Platelet Count Result 316 k/mm3 (150-375); Red Blood Count 3.99 M/mm3 (4.2-5.4); Red Cell Distribution Width 12.7 % (11.5-14.5); White Blood Count 11.3 K/mm3 (4.5-10.0)
[2023-07-01 13:55] LABS: Total Protein Urine Random 61 mg/dL
[2023-07-01 13:59] LABS: Anion Gap 16 mmol/L (8-16); Blood Urea Nitrogen 44 mg/dL (7-17); Calcium 9.1 mg/dL (8.4-10.2); Carbon Dioxide 21 mmol/L (22-30); Chloride 104 mmol/L (98-107); Estimated Glomerular Filt Rate 9; Glucose 107 mg/dL (65-110); Phosphorus 5.7 mg/dL (2.5-4.5); Potassium 3.8 mmol/L (3.4-5.0); Sodium 141 mmol/L (137-145)
[2023-07-01 14:10] LABS: Parathyroid Intact 363.4 pg/mL (7.5-53.5)
[2023-07-01 14:22] LABS: Creatinine Urine 51.5 mg/dL; Ur Ttl Prot Creatinine Ratio 1.18 mg/mg (0-0.20)
[2023-07-01 14:57] LABS: Vitamin D 25 Hydroxy 57.2 ng/mL
== END 2023-07-01 13:31 | disposition home or self-care (01) ==
LOC: ANHLAB 13:32
PROVIDERS: PCP Nurse Practitioner Adult Health; Visit Provider Internal Medicine Nephrology
DX: N18.5 Chronic kidney disease, stage 5 (principal); E21.1 Secondary hyperparathyroidism, not elsewhere classified
CPT/HCPCS: 36415; 80069; 82306; 82570; 83970; 84156; 85027

== ENCOUNTER 2023-07-12 13:04 | Outpatient (CLI) | payer OTHER, SELFPAY ==
[2023-07-12 14:06] LABS: INR 0.9; Prothrombin Time 12.5 Seconds (11.1-14.7)
[2023-07-12 14:07] LABS: Partial Thromboplastin Time 27.6 SECONDS (22.3-36.8)
== END 2023-07-12 13:05 | disposition home or self-care (01) ==
LOC: ANHSURGERY 13:09
PROVIDERS: Anesthesiology; PCP Nurse Practitioner Adult Health; Visit Provider Obstetrics & Gynecology
DX: N18.9 Chronic kidney disease, unspecified (principal); Z01.818 Encounter for other preprocedural examination
CPT/HCPCS: 36415; 85610; 85730

== ENCOUNTER 2023-07-17 03:28 | Day surgery (SDC) | payer OTHER, SELFPAY ==
[2023-07-11 15:44] VITALS: BMI 22.6
--- NOTE | 2023-07-11 15:50 | PC.NURSE ---
Report to the Outpatient Waiting Room, entrance under the green pavilion located off [facility], at time 1:00 on date 07/17/23. Planned Procedure Time: 3:00. Time changes happen often and if your time is changed the preop area will call you the afternoon before. - You and your visitor will be asked to self-screen and do not enter if you have any COVID symptoms. - A mask is optional within the hospital at this time. Patients may have clear liquids (water, carbonated beverages, clear teas, apple juice) until 3 hours prior to surgery (12:00) with a maximum of 20 ounces. - No food from midnight until time of surgery Take the following medications with a SIP of water the morning of surgery: AMLODIPINE, CLONIDINE, HYDRALAZINE, METOPROLOL DO NOT STOP ANY OF YOUR OTHER PRESCRIPTION MEDICATIONS PRIOR TO SURGERY ?EXCEPT THE FOLLOWING Medications to discontinue per physician: VITAMINS/SUPPLEMENTS Date to take last dose: 07/13/23 Please no make-up, nail slovenian, hairspray, perfume, deodorant, or body powder the day of surgery. No jewelry (including any body piercings) or valuables the day of surgery, leave them at home. Please take a shower or bath the night before, or the morning of, surgery with an antibacterial soap. Wear comfortable, loose fitting clothing. - Jewelry must be removed prior to entering the operating room. Rings and piercings that are not removed may be cut off. - The hospital will not accept responsibility for valuables. - Please leave all valuables, including medications, at home the day of surgery. If you are going home after surgery, a licensed swing driver must drive you home. - NO public transportation without another adult if you receive anesthesia. - We recommend that an adult stay with you for 24 hours following discharge. - We also recommend that you do not drive, make important decision, drink alcoholic beverages, or take any drugs that were not prescribed by your health care provider for at least 24 hours after your discharge time. Follow any additional instructions given to you from your surgeon. If you or anyone in your household have experienced Covid symptoms in the past week, please notify your surgeon or the nurse liaison at the phone number below for possible testing. Telephone instructions given to PT - LARISA NAVARRO and asked if any additional questions and then verbalized understanding. Patient advised to call surgeon office or pre surgery nurse liaison [phone] if any additional questions.
[2023-07-17 13:14] VITALS: BP 155/97; PULSE 73; RESP 18; TEMP 36.7; O2SAT 98
--- NOTE | 2023-07-17 13:28 | WPDANESEPPF ---
Anes - Initial Pre Proc Eval Procedure: Operation Date: 07/17/23 15:00 Proposed Procedures p Loop Electrical Excision Procedure - Louise Douglas MD Date/Time: 07/17/23 13:28 Surgeon: Louise Douglas MD Pre Op Diagnosis: Dysplasia of Cervix Patient Data Age: 38 Gender: F Height: 1.65 m Weight: 61.7 kg Allergies Allergy/AdvReac Type Severity Reaction Status Date / Time lisinopril Allergy Swelling Verified 07/17/23 14:24 Home Medications Medication Instructions Recorded Confirmed Type epinephrine 0.3 mg/0.3 mL 0.3 mg (0.3 mL) IM ONCE #2 ea 08/09/22 07/15/23 Rx injection, auto-injector (EpiPen) hydrochlorothiazide 25 mg tablet 25 mg PO DAILY #30 tabs 09/18/22 07/15/23 Rx hydralazine 25 mg tablet 25 mg PO TID #270 tabs 01/04/23 07/15/23 Rx metoprolol tartrate 50 mg tablet See Rx Instructions .Route 03/04/23 07/15/23 Rx .COMPLEX #60 tabs sodium bicarbonate 650 mg tablet See Rx Instructions .Route 04/03/23 07/15/23 Rx .COMPLEX #180 tabs amlodipine 10 mg tablet 10 mg PO DAILY #90 tabs 04/15/23 07/15/23 Rx cetirizine 10 mg tablet 10 mg PO DAILY 05/30/23 07/15/23 History calcium carbonate 600 mg calcium 600 mg PO DAILY 07/11/23 07/11/23 History (1,500 mg) tablet (Calcium) clonidine HCl 0.1 mg tablet See Rx Instructions .Route 07/16/23 07/17/23 Rx .COMPLEX #90 tabs oxycodone-acetaminophen 5 mg-325 1 tablet PO Q4H PRN pain #10 tabs 07/17/23 Rx mg tablet Patient hx anesthesia problems: none Family hx anesthesia problems: none Results Review: All pre-operative results and documents have been reviewed as part of the pre-operative evaluation. [facility] Past Medical History Medical History Anemia Chronic headaches Chronic kidney disease Depression Hypertension Polycystic kidney disease Tobacco abuse Akltj-Orjvpvuke-Gkpxy syndrome Status post ablation. Surgical History Surgical History History of 2 sections History of cardiac radiofrequency ablation (~1998) For Qmhbp-Crbyeedqi-Qoouk syndrome. History of D&C History of tubal ligation Family History Family History Mother A-fib Colitis Mitral valve prolapse Father Polycystic kidney disease Sibling Right bundle branch block Social History Social History Social History: Surrogate decision maker: Ita Cummings, mother. Code status: Full code. Smoking packs per day: 1 Smoking cigarettes per day: 20.0 Smoking status: Current every day smoker Tobacco type: e-cigarettes/vaping Smoking end date: 09/05/22 Alcohol intake: never Substance use: current Substance use type: marijuana Lack of Transportation: No Lack of Food: Never True Current Housing: I Have Housing Concerned About Future Housing: No Difficulty Paying Gas/Electric Bills: No Difficulty Paying for Meds: No Currently Unemployed: No Living arrangements: with family Additional living arrangements comments: Lives in [place] with her fiance and 2 sons. Additional occupation/education comments: Homemaker Gender identity (if verbalized by the patient): Female Spiritual care concerns: No Agree to blood products: Yes Anes - Eval Final PreProcedure Day of Procedure 07/17/23 13:28 Patient weight: normal Heart: regular rate and rhythm Lungs: clear to auscultation and normal air movement Airway: Mallampati scale class II Neurological: alert and oriented Last oral intake: >/= 8 hours ASA classification: III Emergent: no Anesthetic plan: proceed Anesthesia type and monitoring: general GIVS and standard monitoring Results Review: All pre-operative results and documents have been reviewed as part of the pre-operative evaluation. Informed Consent: The patient's anesthetic plan and its attend
[2023-07-17] MEDS: ACETAMINOPHEN 500 MG TABLET 1000 MG PO (13:35)
[2023-07-17] MEDS: SODIUM CHLORIDE 0.9% IV 500 ML 30 ML IV CONT (13:40)
--- NOTE | 2023-07-17 14:37 | PM.IMHP ---
H&P: HPI History of Present Illness Date/Time: 07/17/23 14:37 Chief Complaint: Cervical dysplasia Narrative: this patient is a 38-year-old female with recurrent severe cervical dysplasia. Agreed for the procedure. She understands the procedure. She understands the risk. She understands that injuries may occur their result in hospitalization, more surgery, and severe illness. She understands risk of hemorrhage and infection. She denies any nausea, vomiting, fever, chills. She denies any chest pain or shortness of breath. Review of Systems Review of Systems: All systems reviewed & are unremarkable except as noted in HPI and below Constitutional: Constitutional: Denies chills, Denies fatigue, Denies fever(s) and Denies weakness Eyes: Eyes: Denies blurry vision, Denies change in vision, Denies loss of peripheral vision, Denies loss of vision, Denies other visual disturbances and Denies eye pain ENT: Denies vertigo, Denies dizziness, Denies hearing loss, Denies mouth pain, Denies nasal obstruction, Denies neck mass and Denies neck pain Cardiovascular: Cardiovascular: Denies chest pain, Denies diaphoresis, Denies syncope, Denies leg edema and Denies dyspnea Respiratory: Respiratory: Denies chest congestion, Denies cough, Denies hemoptysis, Denies dyspnea and Denies wheezing Gastrointestinal: Gastrointestinal: Denies abdominal pain, Denies constipation, Denies diarrhea, Denies nausea and Denies vomiting Genitourinary: Genitourinary: Denies hematuria, Denies change in libido, Denies nocturia, Denies genital lesions, Denies flank pain and Denies urinary urgency Musculoskeletal: Musculoskeletal: Denies abnormal gait, Denies back pain, Denies myalgias, Denies arthralgias, Denies joint swelling, Denies muscle weakness and Denies neck pain Integumentary/Breasts: Skin/Breast: Denies swelling, Denies breast pain, Denies breast mass, Denies dry skin, Denies nipple discharge, Denies unusual bruising and Denies jaundice Neurologic: Denies Neuro-related abnormal movements, Denies Abnormal speech present, Denies abnormal gait, Denies behavioral changes, Denies confusion, Denies vertigo, Denies dizziness, Denies syncope, Denies loss of vision, Denies memory loss, Denies convulsions and Denies weakness Psychiatric: Psychiatric: Denies abnormal sleep pattern, Denies behavioral changes, Denies change in libido, Denies confusion, Denies depression, Denies anhedonia and Denies memory loss Endocrine: Endocrine: Reports no additional endocrine complaints, Denies change in libido and Denies fatigue Hematologic/Lymphatic: Hematologic/Lymphatic: Reports no additional hematologic/lymphatic complaints Allergic/Immunologic: Allergic/Immunologic: Reports no additional allergic/immunologic complaints and Denies wheezing PMFSH Past Medical History Medical History Anemia Chronic headaches Chronic kidney disease Depression Hypertension Polycystic kidney disease Tobacco abuse Gvzzs-Cekdslrmr-Qykfg syndrome Status post ablation. Surgical History Surgical History History of 2 sections History of cardiac radiofrequency ablation (~1998) For Ppzjd-Pmpwanhcy-Mjfjy syndrome. History of D&C History of tubal ligation Family History Family History Mother A-fib Colitis Mitral valve prolapse Father Polycystic kidney disease Sibling Right bundle branch block Social History Social History Social History: Surrogate decision maker: Ita Cummings, mother. Code status: Full code. Smoking packs per day: 1 Smoking cigarettes per day: 20.0 Smoking status: Current every day smoker Tobacco type: e-cigarettes/vaping Smoking end date: 09/05/22 Alcohol intake: never Substance use: current Substance use type: marijuana
--- NOTE | 2023-07-17 14:40 | WPDHPUPDATE1 ---
History and Physical Update Update Date/Time: 07/17/23 14:40 History and Physical has been reviewed, including an updated exam of the patient. There are NO changes in the patient's condition. Risks, benefits, and alternatives have been discussed and questions answered. Patient agrees to proceed with procedure.
[2023-07-17] MEDS: LIDO 1%/EPINEPHRINE 1:100,000 20 ML VIAL 10 ML INFILTRATE (15:00)
[2023-07-17] MEDS: IODINE/POTASSIUM IODIDE 8 ML SOLUTION TOPICAL (15:01)
[2023-07-17 15:20] VITALS: BP 111/71; PULSE 79; RESP 18; O2SAT 100
--- NOTE | 2023-07-17 15:29 | W.PM.PROC2 ---
Procedure Note - Detailed Date of Procedure 07/17/23 Pre-op Diagnosis Dysplasia of Cervix Post-op Diagnosis Same Procedure Performed LEEP Surgeon Louise Douglas MD Anesthesia MAC Indications Cervical cancer prevention Findings normal appearing cervix, grossly Description of Procedure the patient was taken to the operating room. She was prepped and draped in the dorsal lithotomy position after induction of MAC anesthesia. A coated speculum was placed in the vagina. The cervix was injected at 3 and 9:00 a.m. with lidocaine. A electrode loop was used to excise the central portion of the cervix in 1 motion. This was from 9:00 to 3:00. After excision of that tissue the cut surface was cauterized with ball cautery. The Monsel solution was applied to the cut surfaces well. The speculum was removed. The patient tolerated the procedure well. She was seeing cover stable condition. Estimated Blood Loss -5.0 Packing No Pathology Yes Complications No immediate complications Condition Stable Disposition Same day
[2023-07-17 15:50] VITALS: BP 138/79; PULSE 63; RESP 18; O2SAT 100
[2023-07-17 16:19] VITALS: BP 127/78; PULSE 60; RESP 18
== END 2023-07-17 16:27 | disposition home or self-care (01) ==
PROVIDERS: PCP Nurse Practitioner Adult Health; Visit Provider Obstetrics & Gynecology
PROC: 0UBC7ZZ Excision of Cervix, Via Natural or Artificial Opening (ICD-10-PCS; CPT 57522; principal; 2023-07-17 15:00)
DX: D06.7 Carcinoma in situ of other parts of cervix (principal); N72 Inflammatory disease of cervix uteri; N88.8 Other specified noninflammatory disorders of cervix uteri; I12.9 Hypertensive chronic kidney disease with stage 1 through stage 4 chronic kidney disease, or unspecified chronic kidney disease; N18.9 Chronic kidney disease, unspecified; F32.A Depression, unspecified; F17.290 Nicotine dependence, other tobacco product, uncomplicated; F12.90 Cannabis use, unspecified, uncomplicated
CPT/HCPCS: 57522; 88307; A9270; J2704; J3010; J7040

== ENCOUNTER 2023-07-28 11:32 | Emergency (ER) | payer OTHER, SELFPAY ==
[2023-07-28 11:34] VITALS: BP 144/101; PULSE 77; RESP 18; TEMP 36.6; O2SAT 100
--- NOTE | 2023-07-28 12:37 | ED.FEMALEGU ---
HPI - Female Genitourinary General Chief complaint: Vaginal Bleeding Stated complaint: vag bleed Time Seen by Provider: 07/28/23 12:02 History of Present Illness HPI Narrative: Patient is a 38-year-old female with a history of CKD secondary to polycystic kidney disease, WPW status post ablation, cervical dysplasia status post LEEP presenting with vaginal bleeding. Patient had a LEEP approximately 11 days ago. States that she had some spotting in the days afterwards but started bleeding earlier today. States that she tried to have a bowel movement and had a gush of blood. States it was bright red, no clots. states that she continues to bleed and now it seems like a menstrual cycle. Reports mild abdominal cramping. No lightheadedness, chest pain, shortness of breath, dysuria. Related Data Home Medications Medication Instructions Recorded Confirmed cetirizine 10 mg tablet 10 mg PO DAILY 05/30/23 07/15/23 calcium carbonate 600 mg calcium 600 mg PO DAILY 07/11/23 07/11/23 (1,500 mg) tablet (Calcium) Allergies Allergy/AdvReac Type Severity Reaction Status Date / Time lisinopril Allergy Swelling Verified 07/28/23 11:41 Review of Systems Review of Systems: All systems reviewed & are unremarkable except as noted in HPI and below PMFSH Past Medical History Medical History Anemia Chronic headaches Chronic kidney disease Depression Hypertension Polycystic kidney disease Tobacco abuse Ixeuh-Cgcywejku-Asbkt syndrome Status post ablation. Surgical History Surgical History History of 2 sections History of cardiac radiofrequency ablation (~1998) For Crjcu-Potzqafid-Tphjt syndrome. History of D&C History of tubal ligation Family History Family History Mother A-fib Colitis Mitral valve prolapse Father Polycystic kidney disease Sibling Right bundle branch block Social History Social History Social History: Surrogate decision maker: Iat Cummings, mother. Code status: Full code. Smoking packs per day: 1 Smoking cigarettes per day: 20.0 Smoking status: Current every day smoker Tobacco type: e-cigarettes/vaping Smoking end date: 09/05/22 Alcohol intake: never Substance use: current Substance use type: marijuana Lack of Transportation: No Lack of Food: Never True Current Housing: I Have Housing Concerned About Future Housing: No Difficulty Paying Gas/Electric Bills: No Difficulty Paying for Meds: No Currently Unemployed: No Living arrangements: with family Additional living arrangements comments: Lives in [place] with her fiance and 2 sons. Additional occupation/education comments: Homemaker Gender identity (if verbalized by the patient): Female Spiritual care concerns: No Agree to blood products: Yes Exam Narrative: GENERAL: Well-appearing, well-nourished, and in no acute distress. HEAD: Normocephalic, atraumatic. EYES: PERRLA and EOMI. ENT: Grossly unremarkable NECK: Supple. CHEST: Clear to auscultation. No respiratory distress. HEART: Regular rate and rhythm ABDOMEN: Soft, nontender, nondistended PELVIC: dark red blood in the vaginal vault the cervix appears appropriately cauterized, no active bleeding appreciated EXTREMITIES: Normal range of motion. SKIN: Warm, dry, no rash. NEURO: No focal deficits. Alert and oriented x3. PSYCH: Normal mood and affect. Course Vital Signs Vital signs: Vital Signs Temperature 97.8 F 07/28/23 11:34 Pulse Rate 77 07/28/23 11:34 Respiratory Rate 18 07/28/23 11:34 Blood Pressure 144/101 H 07/28/23 11:34 Pulse Oximetry 100 07/28/23 11:34 Oxygen Delivery Room Air 07/28/23 11:34 Temperature 97.8 F 07/28/23 11:34 Pulse Rate 7
[2023-07-28 13:00] LABS: Basophils Absolute Auto 0.1 K/mm3 (0.0-0.1); Basophils Percent Auto 0.4 % (0.2-1.2); Eosinophils Absolute Auto 0.5 K/mm3 (0-0.3); Eosinophils Percent Auto 2.6 % (0-4.4); Hematocrit 36.5 % (37.0-47.0); Hemoglobin 11.3 g/dL (12.0-15.0); Immature Granulocyte Absolute 0.11 K/mm3 (0.00-0.031); Immature Granulocyte Percent A 0.5 % (0-0.5); Lymphocytes Absolute Auto 1.71 K/mm3 (0.9-3.2); Lymphocytes Percent Auto 8.4 % (18.3-44.2); Mean Corpuscular Hemoglobin 28.1 pg (26-34); Mean Corpuscular Volume 90.8 fl (80-100); Mean Platelet Volume 10.1 fl (7.4-10.4); Monocytes Absolute Auto 0.8 K/mm3 (0.1-0.6); Monocytes Percent Auto 4.1 % (2.6-8.5); Platelet Count Result 390 k/mm3 (150-375); Red Blood Count 4.02 M/mm3 (4.2-5.4); Red Cell Distribution Width 12.9 % (11.5-14.5); White Blood Count 20.3 K/mm3 (4.5-10.0)
[2023-07-28 13:06] LABS: Anion Gap 15 mmol/L (8-16); Bacteria Urine None Seen /hpf; Blood Urea Nitrogen 48 mg/dL (7-17); Calcium 9.5 mg/dL (8.4-10.2); Carbon Dioxide 20 mmol/L (22-30); Chloride 105 mmol/L (98-107); Estimated CRCL calculation 11 ml/min; Estimated Glomerular Filt Rate 8; Glucose 118 mg/dL (65-110); Non Pathogenic Casts 0-2; Potassium 4.4 mmol/L (3.4-5.0); RBC Urine >100 /hpf (0-2); Sodium 140 mmol/L (137-145); Squamous Epithelial Cell Urine None seen /hpf (Few); WBC Urine 51-100 /hpf
[2023-07-28 13:24] LABS: Appearance Urine Clear (Clear); Bilirubin Urine Negative (Negative); Blood Urine 3+ (Negative); Glucose Urine UA Negative (Negative); Ketones Urine Negative (Negative); Leukocyte Esterase Ur 2+ LEU/UL (Negative); Nitrate Urine Negative (Negative); Protein Urine 1+ mg/dL (Negative); Specific Grav Ur 1.008 (1.001-1.035); Urobilinogen Urine 0.2 mg/dL (<2.0)
[2023-07-28 13:25] LABS: Color Urine Other (Yellow)
[2023-07-28 13:33] LABS: Add Urine Microscopic? YES
[2023-07-28 13:35] LABS: INR 0.9; Partial Thromboplastin Time 28.3 SECONDS (22.3-36.8); Prothrombin Time 12.6 Seconds (11.1-14.7)
[2023-07-28] MEDS: polyethylene glycoL 3350 238 GM BOTTLE PO (13:42)
[2023-07-28 15:09] VITALS: BP 124/89; PULSE 76; RESP 20; O2SAT 100
== END 2023-07-28 15:09 | disposition home or self-care (01) ==
PROVIDERS: Emergency Provider Emergency Medicine; PCP Nurse Practitioner Adult Health
DX: N99.820 Postprocedural hemorrhage of a genitourinary system organ or structure following a genitourinary system procedure (principal); F17.210 Nicotine dependence, cigarettes, uncomplicated; F32.A Depression, unspecified; Q61.3 Polycystic kidney, unspecified
CPT/HCPCS: 36415; 80048; 81001; 81025; 85025; 85610; 85730; 87086; 87088; 99284; A9270

== ENCOUNTER 2023-09-02 11:18 | Outpatient (CLI) | payer OTHER, SELFPAY ==
[2023-09-02 11:36] LABS: Hemoglobin 10.3 g/dL (12.0-15.0); Mean Corpuscular HGB Conc 32.2 g/dl (32-36); Mean Corpuscular Hemoglobin 28.6 pg (26-34); Mean Corpuscular Volume 88.9 fl (80-100); Mean Platelet Volume 10.3 fl (7.4-10.4); Platelet Count Result 306 k/mm3 (150-375); Red Cell Distribution Width 12.6 % (11.5-14.5); White Blood Count 14.1 K/mm3 (4.5-10.0)
[2023-09-02 11:51] LABS: Anion Gap 14 mmol/L (8-16); Blood Urea Nitrogen 50 mg/dL (7-17); Calcium 9.4 mg/dL (8.4-10.2); Carbon Dioxide 21 mmol/L (22-30); Chloride 103 mmol/L (98-107); Estimated Glomerular Filt Rate 8; Glucose 104 mg/dL (65-110); Phosphorus 4.1 mg/dL (2.5-4.5); Potassium 3.7 mmol/L (3.4-5.0); Sodium 138 mmol/L (137-145)
[2023-09-02 12:02] LABS: Parathyroid Intact 429.4 pg/mL (7.5-53.5)
[2023-09-02 12:06] LABS: Creatinine Urine 59.8 mg/dL; Total Protein Urine Random 51 mg/dL; Ur Ttl Prot Creatinine Ratio 0.85 mg/mg (0-0.20)
[2023-09-02 12:10] LABS: Vitamin D 25 Hydroxy 46.4 ng/mL
== END 2023-09-02 11:19 | disposition home or self-care (01) ==
LOC: ANHLAB 11:19
PROVIDERS: PCP Nurse Practitioner Adult Health; Visit Provider Internal Medicine Nephrology
DX: I12.0 Hypertensive chronic kidney disease with stage 5 chronic kidney disease or end stage renal disease (principal); N18.5 Chronic kidney disease, stage 5; E21.1 Secondary hyperparathyroidism, not elsewhere classified
CPT/HCPCS: 36415; 80069; 82306; 82570; 83970; 84156; 85027

== ENCOUNTER 2023-09-12 15:51 | Outpatient (CLI) | payer OTHER, SELFPAY ==
--- NOTE | ~2023-09-12 | XR_ITS ---
EXAMINATION: XR thoracic spine 3V DATE: 09/12/2023 16:21 INDICATION: Thoracic pain after lifting TECHNIQUE: One AP, lateral and lateral swimmer's views of the thoracic spine were obtained. COMPARISON: None. FINDINGS: 22 degree mid thoracic dextroscoliosis. Vertebral body heights are normal. Mild left-sided disc heigh t loss at T5-T6 through T7-T8. Visualized portion of the lungs are clear. IMPRESSION: 1. 22 degrees thoracic dextroscoliosis with mild midthoracic spondylosis. Reviewed, dictated and finalized at location A. OFF [facility] LOG
--- NOTE | ~2023-09-12 | XR_ITS ---
XR_[id number]_CR DATE: 09/12/2023 16:21 INDICATION: Pain after lifting TECHNIQUE: AP, lateral, open-mouth views COMPARISON: None FINDINGS: C1 and C2 are normally aligned and the odontoid process is intact. No fracture or dislocati on or locked facet or prevertebral soft tissue swelling. There is mild degenerative disc disease at C4-5 and moderately prominent degenerative disc disease at C5-C6. Remaining cervical interspaces are well preserved. There is uncovertebral joint spurring, primarily at C5-6. IMPRESSION: No fracture or dislocation Mild cervical spondylosis Reviewed, dictated and finalized at Location A. Reviewed, dictated and finalized at location L. KER OFF
== END 2023-09-12 15:52 | disposition home or self-care (01) ==
LOC: ANHBWCIMG 15:52
PROVIDERS: PCP Nurse Practitioner Adult Health; Visit Provider Nurse Practitioner Adult Health
DX: M47.894 Other spondylosis, thoracic region (principal); M47.892 Other spondylosis, cervical region
CPT/HCPCS: 72040; 72072

== ENCOUNTER 2023-11-01 11:44 | Outpatient (CLI) | payer OTHER, SELFPAY ==
[2023-11-01 12:07] LABS: Hematocrit 30.8 % (37.0-47.0); Hemoglobin 9.9 g/dL (12.0-15.0); Mean Corpuscular HGB Conc 32.1 g/dl (32-36); Mean Corpuscular Hemoglobin 28.7 pg (26-34); Mean Corpuscular Volume 89.3 fl (80-100); Mean Platelet Volume 10.1 fl (7.4-10.4); Platelet Count Result 281 k/mm3 (150-375); Red Blood Count 3.45 M/mm3 (4.2-5.4); Red Cell Distribution Width 12.2 % (11.5-14.5); White Blood Count 11.2 K/mm3 (4.5-10.0)
[2023-11-01 12:22] LABS: Alanine Aminotransferase 10 U/L (6-35); Albumin Level 4.9 g/dL (3.5-5.1); Anion Gap 11 mmol/L (4-12); Blood Urea Nitrogen 72 mg/dL (7-17); Carbon Dioxide 20 mmol/L (22-30); Chloride 104 mmol/L (98-107); Cholesterol 157 mg/dL (0-200); Estimated Glomerular Filt Rate 7; Glucose 106 mg/dL (65-110); HDL Direct 36 mg/dL; Phosphorus 5.1 mg/dL (2.5-4.5); Potassium 4.2 mmol/L (3.4-5.0); Sodium 135 mmol/L (137-145); Triglycerides 128 mg/dL (<150)
[2023-11-01 12:23] LABS: Total Protein Urine Random 44 mg/dL; Ur Ttl Prot Creatinine Ratio 1.02 mg/mg (0-0.20)
[2023-11-01 12:33] LABS: LDL Cholesterol Direct 92 mg/dL
[2023-11-01 12:58] LABS: Vitamin D 25 Hydroxy 52.8 ng/mL
[2023-11-01 17:41] LABS: Parathyroid Intact 246.5 pg/mL (7.5-53.5)
== END 2023-11-01 11:45 | disposition home or self-care (01) ==
LOC: ANHLAB 11:45
PROVIDERS: PCP Nurse Practitioner Adult Health; Visit Provider Internal Medicine Nephrology
DX: E78.5 Hyperlipidemia, unspecified (principal); E21.1 Secondary hyperparathyroidism, not elsewhere classified; N18.5 Chronic kidney disease, stage 5
CPT/HCPCS: 36415; 80061; 80069; 82306; 82570; 83970; 84156; 84460; 85027

== ENCOUNTER 2024-01-22 10:55 | Outpatient (CLI) | payer OTHER, SELFPAY ==
[2024-01-22 11:37] LABS: Hematocrit 31.1 % (37.0-47.0); Hemoglobin 9.9 g/dL (12.0-15.0); Mean Corpuscular HGB Conc 31.8 g/dl (32-36); Mean Corpuscular Hemoglobin 28.9 pg (26-34); Mean Corpuscular Volume 90.7 fl (80-100); Mean Platelet Volume 10.1 fl (7.4-10.4); Platelet Count Result 313 k/mm3 (150-375); Red Blood Count 3.43 M/mm3 (4.2-5.4); Red Cell Distribution Width 13.2 % (11.5-14.5)
[2024-01-22 11:54] LABS: Albumin Level 5.1 g/dL (3.5-5.1); Anion Gap 15 mmol/L (4-12); Blood Urea Nitrogen 63 mg/dL (7-17); Calcium 9.1 mg/dL (8.4-10.2); Carbon Dioxide 17 mmol/L (22-30); Chloride 107 mmol/L (98-107); Estimated Glomerular Filt Rate 5; Glucose 98 mg/dL (65-110); Phosphorus 6.2 mg/dL (2.5-4.5); Potassium 4.6 mmol/L (3.4-5.0); Sodium 139 mmol/L (137-145)
[2024-01-22 11:55] LABS: Creatinine Urine 41.5 mg/dL; Total Protein Urine Random 61 mg/dL; Ur Ttl Prot Creatinine Ratio 1.47 mg/mg (0-0.20)
[2024-01-22 12:04] LABS: Parathyroid Intact 291.5 pg/mL (7.5-53.5)
== END 2024-01-22 10:56 | disposition home or self-care (01) ==
LOC: ANHLAB 10:56
PROVIDERS: PCP Nurse Practitioner Adult Health; Visit Provider Internal Medicine Nephrology
DX: N18.5 Chronic kidney disease, stage 5 (principal)
CPT/HCPCS: 36415; 80069; 82570; 83970; 84156; 85027

== ENCOUNTER 2024-02-06 11:01 | Outpatient (CLI) | payer OTHER, SELFPAY ==
[2024-02-06 11:59] LABS: Albumin Level 5.4 g/dL (3.5-5.1); Anion Gap 20 mmol/L (4-12); Blood Urea Nitrogen 77 mg/dL (7-17); Calcium 9.1 mg/dL (8.4-10.2); Carbon Dioxide 19 mmol/L (22-30); Chloride 91 mmol/L (98-107); Estimated Glomerular Filt Rate 5; Glucose 106 mg/dL (65-110); Phosphorus 6.4 mg/dL (2.5-4.5); Potassium 3.3 mmol/L (3.4-5.0); Sodium 130 mmol/L (137-145)
[2024-02-06 12:33] LABS: Creatinine Urine 47.5 mg/dL
[2024-02-06 12:52] LABS: Sodium Urine Random 29 meq/L
== END 2024-02-06 11:02 | disposition home or self-care (01) ==
LOC: ANHLAB 11:02
PROVIDERS: PCP Nurse Practitioner Adult Health; Visit Provider Internal Medicine Nephrology
DX: N18.5 Chronic kidney disease, stage 5 (principal)
CPT/HCPCS: 36415; 80069; 82570; 84300

== ENCOUNTER 2024-02-12 14:18 | Outpatient (CLI) | payer OTHER, SELFPAY ==
[2024-02-12 16:19] LABS: Hepatitis B Surface Antigen Negative (Negative)
[2024-02-12 17:06] LABS: Hepatitis B Surface Anti Res Positive; Hepatitis C Virus Antibody Negative (Negative)
[2024-02-14 08:23] LABS: Hepatitis B Core Ab Total NON-REACTIVE (NON-REACTIVE)
== END 2024-02-12 14:19 | disposition home or self-care (01) ==
PROVIDERS: PCP Nurse Practitioner Adult Health; Visit Provider Internal Medicine Nephrology
DX: N18.5 Chronic kidney disease, stage 5 (principal); R53.83 Other fatigue; R80.9 Proteinuria, unspecified
CPT/HCPCS: 36415; 86704; 86706; 86803; 87340

== ENCOUNTER 2024-03-05 13:43 | Outpatient (CLI) | payer OTHER, SELFPAY ==
--- NOTE | ~2024-03-05 | XR_ITS ---
EXAMINATION: XR chest 2V 03/05/2024 13:52 INDICATION: Screening for tuberculosis PROCEDURE: 2 view chest COMPARISON: No prior studies for comparison. FINDINGS: The lungs are clear. The cardiomediastinal silhouette is within normal limits. There are no pleural effusions. There is no pneumothorax suspected. IMPRESSION: 1: NO ACUTE CARDIOPULMONARY DISEASE. Reviewed, dictated and finalized at location B.
== END 2024-03-05 13:44 | disposition home or self-care (01) ==
LOC: ANHIMG 13:44
PROVIDERS: PCP Nurse Practitioner Adult Health; Visit Provider Internal Medicine Nephrology
DX: N18.5 Chronic kidney disease, stage 5 (principal)
CPT/HCPCS: 71046

== ENCOUNTER 2024-03-11 11:43 | Outpatient (CLI) | payer OTHER, SELFPAY ==
[2024-03-11 12:08] LABS: Hematocrit 28.3 % (37.0-47.0); Hemoglobin 9.1 g/dL (12.0-15.0); Mean Corpuscular HGB Conc 32.2 g/dl (32-36); Mean Corpuscular Hemoglobin 29.4 pg (26-34); Mean Corpuscular Volume 91.3 fl (80-100); Mean Platelet Volume 9.9 fl (7.4-10.4); Platelet Count Result 329 k/mm3 (150-375); Red Cell Distribution Width 12.4 % (11.5-14.5); White Blood Count 7.7 K/mm3 (4.5-10.0)
[2024-03-11 12:19] LABS: Albumin Level 4.7 g/dL (3.5-5.1); Anion Gap 16 mmol/L (4-12); Blood Urea Nitrogen 56 mg/dL (7-17); Calcium 8.7 mg/dL (8.4-10.2); Carbon Dioxide 20 mmol/L (22-30); Chloride 100 mmol/L (98-107); Estimated Glomerular Filt Rate 6; Glucose 97 mg/dL (65-110); Phosphorus 5.5 mg/dL (2.5-4.5); Potassium 4.5 mmol/L (3.4-5.0); Sodium 136 mmol/L (137-145)
== END 2024-03-11 11:44 | disposition home or self-care (01) ==
LOC: ANHLAB 11:44
PROVIDERS: PCP Nurse Practitioner Adult Health; Visit Provider Internal Medicine Nephrology
DX: N18.5 Chronic kidney disease, stage 5 (principal)
CPT/HCPCS: 36415; 80069; 85027

== ENCOUNTER 2024-03-19 14:47 | Outpatient (CLI) | payer OTHER, SELFPAY ==
[2024-03-19 18:36] LABS: Hepatitis B Surface Antigen Negative (Negative)
[2024-03-19 18:45] LABS: Hepatitis B Surface Anti Res Positive; Hepatitis C Virus Antibody Negative (Negative)
[2024-03-20 11:39] LABS: Hepatitis B Core Ab Total NON-REACTIVE (NON-REACTIVE)
== END 2024-03-19 14:48 | disposition home or self-care (01) ==
LOC: ANHLAB 14:48
PROVIDERS: PCP Nurse Practitioner Adult Health; Visit Provider Internal Medicine Nephrology
DX: R80.9 Proteinuria, unspecified (principal); N18.5 Chronic kidney disease, stage 5; R53.83 Other fatigue
CPT/HCPCS: 36415; 86704; 86706; 86803; 87340